=== PATIENT | male | born 1960 | race Caucasian/White ===

== ENCOUNTER 2022-01-08 08:49 | Day surgery (SDC) | payer BC ==
[2022-01-08] MEDS ORDERED: LACTATED RINGERS 1,000 ML IV ONE (08:51)
--- NOTE | 2022-01-08 11:21 | ANESTHESIA ---
Pre-Anesthesia VS, & Labs - Diagnosis GERD, Screening - Procedure EGD, Colonoscopy Vital Signs: Temp Pulse Resp BP Pulse Ox O2 Flow Rate 36.7 C 84 16 139/92 H 100 01/08/22 08:55 01/08/22 08:55 01/08/22 08:55 01/08/22 08:55 01/08/22 08:55 Height: 6 ft 1 in Weight (kg): 80 kg Body Mass Index: 23.2 BMI Classification: Normal - NPO >8 hours Home Medications and Allergies Home Medications: Ambulatory Orders Acetaminophen [Pain Relief Extra Strength] 1,000 mg PO DAILY 01/01/22 Baclofen 10 - 20 mg PO DAILY PRN 01/01/22 Famotidine [Pepcid] 20 mg PO BID 01/01/22 Gabapentin [Neurontin] 600 mg PO DAILY 01/01/22 Losartan [Cozaar] 50 mg PO DAILY 01/01/22 Acetaminophen [Pain Relief Extra Strength] 1,000 mg PO DAILY 01/01/22 Baclofen 10 - 20 mg PO DAILY PRN 01/01/22 Famotidine [Pepcid] 20 mg PO BID 01/01/22 Gabapentin [Neurontin] 600 mg PO DAILY 01/01/22 Losartan [Cozaar] 50 mg PO DAILY 01/01/22 Allergies/Adverse Reactions: Allergies Allergy/AdvReac Type Severity Reaction Status Date / Time ceftaroline fosamil Allergy Rash Verified 01/01/22 14:50 vancomycin Allergy red man Verified 01/01/22 14:50 syndrome Anes History & Medical History - Anesthetic History Anesthesia Complications: reports: No previous complications Family history of Anesthesia Complications: Denies Family history of Malignant Hyperthermia: Denies - Medical History Cardiovascular: reports: Hypertension, Murmur Pulmonary: reports: None Gastrointestinal: reports: GERD Urinary: reports: None Musculoskeletal: reports: Chronic back pain Endocrine/Autoimmune: reports: Other Skin: reports: Other - Surgical History General: reports: Colonoscopy Eyes Ears Nose Throat (EENT): reports: Tonsil/Adenoidectomy Orthopedic: reports: Arthroscopic surgery, Spine surgery Dermatologic: reports: Skin cancer surgery Exam General: Alert, Oriented x3, Cooperative Dental: WNL Mouth Openin Fingerbreadth Neck Mobility: Normal Mallampati classification: II Thyromental Distance: 4-6 cm Respiratory: Lungs clear Cardiovascular: Regular rate Plan Anesthesia Type: Total IV Consent for Procedure(s) Verified and Reviewed: Yes Code Status: Attempt Resuscitation ASA classification: 2-Mild systemic disease Is this case an emergency?: No
[2022-01-08] MEDS ORDERED: MIDAZOLAM 2 MG/2 ML VIAL ONE (11:37)
[2022-01-08] MEDS ORDERED: PROPOFOL 200 MG/20 ML VIAL IVP ONE (11:37)
[2022-01-08] MEDS ORDERED: PROPOFOL 500 MG/50 ML 500 MG/50 ML VIAL ONE (11:37)
[2022-01-08] MEDS ORDERED: LACTATED RINGERS 850 ML IV ONE (12:37)
[2022-01-08 13:00] VITALS: BP 125/77
--- NOTE | 2022-01-08 14:05 | ANESTHESIA POST OP EVALUATION ---
Anesthesia Post Eval - Post Anesthesia Eval Vitals: Last Vital Signs Temp 36.2 C L 01/08/22 12:55 Pulse 58 L 01/08/22 12:55 Resp 15 01/08/22 12:55 BP 125/77 01/08/22 12:55 Pulse Ox 97 01/08/22 12:55 O2 Flow Rate CV Function Including HR & BP: Stable Pain Control: Satisfactory Nausea & Vomiting: Negative Mental Status: Baseline Respiratory Status: Airway Patent Hydration Status: Satisfactory Anesthesia Complications: None
== END 2022-01-08 08:50 | disposition home or self-care (01) ==
LOC: SDS 08:49
PROVIDERS: ATTEND Surgery
PROC: 0DBH8ZX Excision of Cecum, Via Natural or Artificial Opening Endoscopic, Diagnostic (ICD-10-PCS; principal; 2022-01-08 10:30)
DX: Z12.11 Encounter for screening for malignant neoplasm of colon (principal); D12.0 Benign neoplasm of cecum; K64.8 Other hemorrhoids; K57.30 Diverticulosis of large intestine without perforation or abscess without bleeding; K21.9 Gastro-esophageal reflux disease without esophagitis; D50.9 Iron deficiency anemia, unspecified; K44.9 Diaphragmatic hernia without obstruction or gangrene; I10 Essential (primary) hypertension; R00.1 Bradycardia, unspecified
CPT/HCPCS: 43235; 45380; J7120

== ENCOUNTER 2022-02-18 12:55 | Outpatient (CLI) | payer OTHER ==
[2022-02-18 13:41] VITALS: BP 144/80
--- NOTE | 2022-02-18 13:42 | SLEEP CARE CONSULTATION ---
Information from patient questionnaire entered by Neelima Balbuena. I have reviewed and concur with the information entered by Neelima Balbuena. This document represents the service I personally performed and the decisions made by me, Antoinette Moseley ARNP. History of Present Illness Service Date and Time: 02/18/2022 1255 Reason for Visit: New patient Chief Complaint: reports: Insomnia, Fatigue, Frequent awakenings at night Date of Onset: 1 YEAR AGO Usual bedtime: 1030 PM -12 AM Time it takes to fall asleep: 10-15 MIN Snores at night: No Observed to quit breathing while asleep: No Sleeps alone due to snoring: No Number of times waking at night: 1-3 Reasons for waking at night: reports: Pain, Bathroom, Other (UNKNOWN REASON; leg cramps, anxiety, night sweats) Toss, Turn, or Twitch while sleeping: No Recalls having dreams: Yes Usually gets out of bed at: 8-830AM Feels refreshed in the morning: No Morning headache: No Sleepy or fatigued during the day: Yes Ever fallen asleep while driving: Yes (drowsy driving, no accidents) Takes day naps: Yes (tries to avoid; 2 times a week avg now) Dreams during day naps: Yes Prior sleep studies: No Additional HPI information: I had the pleasure of seeing RUSSELL OLIVAREZ today regarding the possibility of him having a sleep disorder. His current complaints are insomnia, fatigue and frequent night awakenings. He states that his partner has told him he snores occasionally but has never seen a pause in breathing. He states he does not move a lot in sleep. He states he got ill about 3 years ago and he noticed problem sleeping when he started getting off regular narcotic use. 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 He was on pain management to deal with his pain. He states he has no trouble falling asleep but rarely can sleep through this night. He states 3 or more nights a week he wakes up at least twice and will "fret" about sleeping and about how he will feel in the morning. He is seeing his PCP who is evaluating him for anxiety, depression and sleep issues. - Parasomnia Symptoms Ever been unable to move upon waking from sleep: No Walks in sleep: No Talks in sleep: Yes Ever acted out dreams in sleep: No Ever felt weak in the knees when startled or emotional: Yes Bothered by creepy, crawly, restless sensations in legs: No Problems with memory or concentration: Yes (both) Subjective Initial [place] Sleepiness Scale score: 16 (01/29/2022) Past Medical History Past Medical History: reports: Hypertension, Anemia, Anxiety, Depression, GERD, Other (PAIN NEUROPATHY AND NUMBNESS FOLLING JANUARY SPINAL FUSION SURGERY Jan 2021 spinal fusion) Social History The patient's occupation is a [employer]. Patient is and lives in [place]. Have you smoked in the past 12 months: No Alcohol use: Yes Alcohol amount and frequency: 1-2 GLASSES A DAY 5-6 DAYS A WEEK Caffeine use: Yes Caffeine amount and frequency: 1 CUP OF COFFEE DAILY Family History Family history of sleep disordered breathing: No (Don't know) Allergies and Home Medications Known drug allergies: Yes (VANCOMYCIN, CEFTAROLINE) Drug allergies reviewed: Yes (vacomycin, Ceftaraline) Home medication list reviewed: Yes Allergy and home medication list: Allergies ceftaroline fosamil Allergy (Verified 01/08/22 12:53) Rash vancomycin Allergy (Verified 01/08/22 12:53) red man syndrome Medications: Gabapentin 600 mg 1 x as needed Acetaminophen 1000 mg , prn Baclofen 10 mg as needed for muscle spasms Losartan Potassium 50 mg daily Famotidine 20 mg 1-2 x day Review of Systems Weight loss over past 5 years: 20-25 Cardiovascular: reports: high blood pressure Respiratory: reports: other (OCCASIONAL DRY COUGH) Gastrointestinal: reports: heartburn, nausea Neurological: denies: headaches Psychiatric: reports: anxiety, depression Ear/Nose/Throat: reports: tonsillectomy, other (THYROID NODULE NO KNOWN CURRENT COMPLICATIONS ). denies: wisdom teeth removed Endocrine: reports: other (thyroid nodule - no known complications at present (stable)) Musculoskeletal: reports: back pain Immunologic: reports: sneezing, other (RUNNY NOSE ) Physical Exam Vital signs obtained and entered by: NEELIMA Omer MA Blood Pressure: 144/80 (left arm) Cuff size: regular Heart Rate: 86 O2 Saturation: 96 Height: 6 ft 1 in Weight: 183 lb Body Mass Index: 24.1 BMI Classification: Normal Neck circumference: 16.5 Nostrils: patent to airflow Mouth and throat: narrow oropharynx Soft palate: long Hard palate: normal Uvula: normal Uvula visualization: 50% Mallampati Class II Tongue: enlarged in size with teeth zaragoza on lateral edges Tonsils: absent bilaterally Neck: normal w/o lymphadenopathy or thyromegaly Heart: regular rate and rhythm Lungs: clear bilaterally Impression and Plan 1. Suspected Obstructive Sleep Apnea-Hypopnea Syndrome, as suggested by a history of irregular snoring, frequent awakening during the night, unrefreshed sleep, cognitive impairment, and excessive daytime sleepiness. Narrow oropharynx and obesity are common predisposing factors for obstructive sleep apnea-hypopnea syndrome. I recommend proceeding to polysomnography to confirm the diagnosis and to assess severity. If the patient has significant sleep disordered breathing, a manual CPAP titration study will also be performed to find the optimal treatment pressure. I informed the patient of what the sleep studies involve and after some discussion, obtained agreement to proceed. The pathophysiology of obstructive sleep apnea-hypopnea syndrome was discussed with the patient and health risks of cardiovascular and cerebrovascular disease if not treated. Risks of drowsy driving discussed in detail and patient advised to avoid long distance driving and to machine assembler for puller over at the first sign of drowsiness. Patient agreed to plan. * Schedule polysomnography * Avoid long distance driving or driving when feeling sleepy. * Avoid alcohol, sedative and muscle relaxant around bedtime. * Attempt to lose weight. * Review instructions provided by trained office staff on how to prepare for the sleep study. * Return for follow-up after sleep study completed. Counseling Topics: Weight control Visit Type: In Office Time Spent with Patient (minutes): 31 Provider Statement: I spent 100% of the Face to Face Visit with the patient with greater than 50% spent counseling the patient and coordination of care.
== END 2022-02-18 12:56 | disposition home or self-care (01) ==
LOC: SC 12:55
PROVIDERS: ATTEND Nurse Practitioner Family
DX: R53.83 Other fatigue (principal); G47.8 Other sleep disorders; R06.83 Snoring; I10 Essential (primary) hypertension
CPT/HCPCS: 99203; 99212

== ENCOUNTER 2022-03-19 12:18 | Outpatient (CLI) | payer OTHER | END 2022-03-19 12:19 | disposition home or self-care (01) | LOC: SC 12:18 | PROVIDERS: ATTEND Nurse Practitioner Family | DX: Z53.9 Procedure and treatment not carried out, unspecified reason (principal) | CPT/HCPCS: 95806 ==

== ENCOUNTER 2022-03-24 12:28 | Outpatient (CLI) | payer OTHER | END 2022-03-24 12:29 | disposition home or self-care (01) | LOC: SC 12:28 | PROVIDERS: ATTEND Nurse Practitioner Family | DX: G47.33 Obstructive sleep apnea (adult) (pediatric) (principal); R09.02 Hypoxemia | CPT/HCPCS: 95806 ==

== ENCOUNTER 2022-04-29 14:39 | Outpatient (CLI) | payer OTHER ==
[2022-04-29 14:17] VITALS: BP 130/80
--- NOTE | 2022-04-29 14:17 | SLEEP CARE CONSULTATION ---
Information from patient questionnaire entered by Gracy Balbuena. I have reviewed and concur with the information entered by Gracy Balbuena. This document represents the service I personally performed and the decisions made by , Antoinette Moseley ARNP. History of Present Illness Service Date and Time: 04/29/2022 1340 Initial [place] Sleepiness Scale score: 16 (01/29/2022) Current [place] Sleepiness Scale score: 15 (04/29/22) Additional HPI information: RUSSELL OLIVAREZ returns via video telehealth visit for follow up and results of the recently performed home sleep study. I explained the pathophysiology behind obstructive sleep apnea. We then spent quite a bit of time discussing different treatment options. For mild obstructive sleep apnea, surgery and oral appliance are alternatives to nasal CPAP therapy but in moderate or severe cases, nasal CPAP is the most effective and reliable treatment. Because apnea is primarily in supine position, then positional management therapy could be effective. Methods discussed such as positioning with pillows to prevent supine sleep. I reviewed the impact of weight changes on sleep apnea and strongly recommended losing weight. Patient counseled not drink alcohol less than 4 hours before bedtime as it can increase snoring and apnea. Patient was cautioned about risks of drowsy driving until sleepiness symptoms resolve. Patient denies drowsy driving. Sleep Study - Results Type of Sleep Study: Home sleep study (COMPLETED 03/25/22) Prior sleep studies: No Polysomnography/Home Sleep Study results: Physician Impression: The quality of the study is good. The length of the study is adequate (> 240 minutes). Please also see the tabulated and graphic data. 1. Obstructive Sleep Apnea-Hypopnea (ICD-10 G47.33), moderate, with an AHI of 16.6/hr and roseann SaO2 of 88%. During the study, the patient had 108 apneas (108 obstructive, 0 central, 0 mixed) and 5 hypopneas. The longest episode lasted 108.0 seconds. The respiratory events occurred almost exclusively during supine sleep (supine AHI was 27.4 and non-supine, 1.42). 2. Hypoxemia (ICD-10 R09.02), minimal, with the lowest oxygen saturation of 88 % and 0.4 minutes with SaO2 under 90%. Baseline oxygen saturation was normal (Average oxygen saturation was 96%). Allergies and Home Medications Drug allergies reviewed: Yes (see list in EMR) Home medication list reviewed: Yes (no changes) Review of Systems Review of systems same as previous: Yes (no changes) Physical Exam Vital signs obtained and entered by: VIA PHONE GRACY Omer MA Blood Pressure: 130/80 (PER PT) Height: 6 ft 1 in (PER PT) Weight: 175 lb (PER PT) Body Mass Index: 23.1 BMI Classification: Normal Impression and Plan 1. Obstructive Sleep Apnea-Hypopnea Syndrome, moderate, with lowest oxygen saturation of 88%. Obviously this is the cause of the patients symptoms of unrefreshed sleep, and excessive daytime sleepiness. Positive pressure therapy could benefit hypertension, anxiety, depression and gastric reflux. Since patients apnea is primarily in supine position, patient advised to try positional therapy and agreed with plan. He is also advised to lose weight as this will reduce snoring and apnea. An oral appliance can also be used for snoring but often is not covered by insurance. Follow up is scheduled for one month to check effectiveness and if further evaluation indicated such a repeat study in supine position only to see if additional treatment indicated. * Positional therapy. * Avoid alcohol consumption near bedtime. * Avoid supine sleep * The patient is again cautioned about driving until sleepiness completely resolves. * Return 1-2 months after starting positional therapy. I will assess response to therapy at that time. Counseling Topics: Sleeping position, Weight control Visit Type: Telehealth Video Video Type: Doxjae Patient Location: Home Location of Provider: Office Patient agrees and consents to this telehealth visit type: Yes Patient agrees to have their insurance billed: Yes Time Spent with Patient (minutes): 22 Provider Statement: I spent 100% of the Telehealth Video Call with the patient with greater than 50% spent counseling the patient and coordination of care.
== END 2022-04-29 14:40 | disposition home or self-care (01) ==
LOC: SC 14:39
PROVIDERS: ATTEND Nurse Practitioner Family
DX: G47.33 Obstructive sleep apnea (adult) (pediatric) (principal)

== ENCOUNTER 2022-06-25 13:57 | Outpatient (CLI) | payer OTHER ==
--- NOTE | 2022-06-25 13:54 | SLEEP CARE CONSULTATION ---
Information from patient questionnaire entered by Gracy Balbuena. I have reviewed and concur with the information entered by Gracy Balbuena. This document represents the service I personally performed and the decisions made by me, Antoinette Moseley ARNP. History of Present Illness Service Date and Time: 06/25/2022 1340 Previous diagnosis: Moderate, Obstructive Sleep Apnea-Hypopnea Syndrome AHI: 16.6 (in 2021) Reason for follow up: other (1-2 MONTH F/U POSTIONAL THERAPY ) Prior sleep studies: No Type of Sleep Study: Home sleep study (COMPLETED 03/25/22) HPI additional information: RUSSELL OLIVAREZ was diagnosed to have moderate, AHI 16.6, obstructive sleep apnea-hypopnea syndrome and returns via video telehealth visit today for Positio nal therapy two month follow-up. Sleep Study - Results Type of Sleep Study: Home sleep study (COMPLETED 03/25/22) Prior sleep studies: No CPAP Compliance Data Compliance data discussion: He is using a cushion for positional therapy for a few weeks but felt it was res trictive on his sleep positioning. He stopped using it and feels he is sleeping well. He states that 5 of 7 nights he is sleeping without interrupt. His partner has noted that he is not changing positions and he is sleeping on his side. He prefers his right side. Subjective On therapy, patient: reports: sleeping better, awakening more refreshed, being more awake and alert during the day, more rested overall, other (he is much more energetic during the day). denies: drowsiness while driving Initial [place] Sleepiness Scale score: 16 (01/29/2022) Current [place] Sleepiness Scale score: 9 (06/25/22) Allergies and Home Medications Known drug allergies: Yes (ceftaroline fosamil, vancomycin) Drug allergies reviewed: Yes Home medication list reviewed: Yes (no changes) Review of Systems Review of systems same as previous: Yes (no changes) Physical Exam Vital signs obtained and entered by: VIA PHONE GRACY Omer MA Height: 6 ft 1 in (PER PT) Weight: 175 lb (PER PT) Body Mass Index: 23.1 BMI Classification: Normal Impression and Plan 1. Obstructive Sleep Apnea-Hypopnea Syndrome, moderate. Using positional therapy, the patient has better sleep quality and is more rested overall. Tod hicks did try a positional pillow for 2-3 weeks but found that he did not sleep as well when he used it. He thought it was disruptive of his sleep. He stopped using it but was able to stay on his side to control his apneas. He has noticed an improvement of his energy during the day and restfulness in the morning. He has been having less need of naps during the afternoon. He would like to manolo nue with positional therapy. Patient's apnea severity and rationale for treatment to reduce apnea, improve sleep quality and reduce cardiovascular and cerebrovascular events was reviewed. It appears positional therapy is working well for him and we will continue him on positional therapy and follow-up with him in about 6 months. -Continue positional therapy -Maintain healthy weight -Call this office if any problems -Return for follow up in 6 months, or sooner if concerns arise Counseling Topics: Sleeping position Visit Type: Telehealth Video Video Type: Doximity Patient Location: Home Location of Provider: Office Patient agrees and consents to this telehealth visit type: Yes Patient agrees to have their insurance billed: Yes Time Spent with Patient (minutes): 20 Provider Statement: I spent 100% of the Telehealth Video Call with the patient with greater than 50% spent counseling the patient and coordination of care.
== END 2022-06-25 13:58 | disposition home or self-care (01) ==
LOC: SC 13:57
PROVIDERS: ATTEND Nurse Practitioner Family
DX: G47.33 Obstructive sleep apnea (adult) (pediatric) (principal)

== ENCOUNTER 2022-10-31 12:41 | Outpatient (CLI) | payer BC ==
--- NOTE | 2022-10-31 14:49 | Ultrasound Report ---
PROCEDURE: Head or Neck Soft Tissue INDICATIONS: THYROID NODULE TECHNIQUE: Real-time scanning was performed of the thyroid gland, with image documentation. COMPARISON: None FINDINGS: Right: Thyroid lobe measures 4.4 x 1.2 x 1.5 cm, and is homogeneous in echotexture. Left: Thyroid lobe measures 4.7 x 2.7 x 2.6 cm, and is homogenous in echotexture. Isthmus: 4.3 mm thick. Nodule number: 1 Location: Left thyroid lobe Size: 3.7 x 2.3 x 2.8 cm.; Previously 3.7 x 2.3 x 2.3 cm Composition: Solid. Echogenicity: Heterogeneous [id number]. Shape: wider than tall. Margins: Smooth (0 points). Echogenic foci: None (0 points). Total points: 4 ACR TI-RADS category: 4. IMPRESSION: 1. A large nodule in the left thyroid lobe. Recommend fine-needle aspiration biopsy under ultrasound guidance. ACR TI-RADS definitions and recommendations: TI-RADS 1 (benign): 0 points. FNA not needed. TI-RADS 2 (not suspicious): 2 points. FNA not needed. TI-RADS 3 (mildly suspicious): 3 points. "FNA if 2.5 cm or larger, follow up if 1.5 cm or larger (at 1, 3, and 5 years). TI-RADS 4 (moderately suspicious): 4-6 points. "FNA if 1.5 cm or larger, follow up if 1 cm or larger (at 1, 2, 3, and 5 years). TI-RADS 5 (highly suspicious): 7 points or more. "FNA if 1 cm or larger, follow up if 0.5 cm or larger (every year for 5 years). Reviewed by: Sheyla Johnson MD on 10/31/2022 2:47 PM PDT Approved by: Sheyla Johnson MD on 10/31/2022 2:47 PM PDT Station ID: [id number]
== END 2022-10-31 12:42 | disposition home or self-care (01) ==
LOC: DI 12:41
PROVIDERS: ATTEND Physician Assistant
DX: E04.1 Nontoxic single thyroid nodule (principal)

== ENCOUNTER 2022-11-10 13:41 | Outpatient (CLI) | payer BC ==
[2022-11-10] MEDS ORDERED: LIDOCAINE-MPF 1% 5 ML VIAL ONE (13:45)
[2022-11-10] MEDS ORDERED: LIDOCAINE-MPF 1% 5 ML VIAL TD ONE (14:41)
--- NOTE | 2022-11-10 21:41 | Ultrasound Report ---
PROCEDURE: FNA Bx w/US Gdn 1st Les INDICATIONS: THYROID NODULE TECHNIQUE: The indications, alternatives, benefits, risks, and complications of the procedure were explained to the patient. Written informed consent was obtained and placed in the chart. The area of interest wa s examined sonographically and a site was chosen for ultrasound guided percutaneous sampling. The sk in was prepared and draped in the usual fashion, and anesthetized with 1% lidocaine infiltrated from the skin down to the lesion. Multiple passes were then performed, with contents emptied into an appr [facility] pathology specimen container. A bandage was applied to the area of access at completion of t he study. COMPARISON: None. FINDINGS: Location(s) of lesion(s) sampled: Left thyroid lobe nodule [place]: 25 gauge hypodermic needles. Number of passes: 6 Medications: 1% lidocaine for local anaesthesia. Complications: None. IMPRESSION: Successful ultrasound-guided left thyroid lobe nodule fine needle aspiration, with cytology results p ending. Reviewed by: Clyde Saleh MD on 11/10/2022 9:39 PM PDT Approved by: Clyde Saleh MD on 11/10/2022 9:39 PM PDT Station ID: [id number]
== END 2022-11-10 13:42 | disposition home or self-care (01) ==
LOC: DI 13:41
PROVIDERS: ATTEND Physician Assistant
DX: E04.1 Nontoxic single thyroid nodule (principal)
CPT/HCPCS: 10005